=== PATIENT | female | born 1990 | race Caucasian/White ===

== ENCOUNTER 2019-03-12 14:54 | Outpatient (CLI) | payer BC | END 2019-03-12 14:55 | disposition home or self-care (01) | LOC: DTY/OP 14:54 | PROVIDERS: ATTEND Specialist | DX: Z01.818 Encounter for other preprocedural examination (principal); E66.01 Morbid (severe) obesity due to excess calories | CPT/HCPCS: 97802 ==

== ENCOUNTER 2019-04-16 09:38 | Outpatient (CLI) | payer BC ==
[2019-04-16 14:29] LABS: BHCG - Serum Negative (NEGATIVE); Pregs Control Background? CLEAR/WHITE (CLR/WHITE); Pregs Control Bar Appear? YES (CONTROL BAR)
== END 2019-04-16 09:39 | disposition home or self-care (01) ==
LOC: LABBT 09:38
PROVIDERS: ATTEND Specialist
DX: Z01.812 Encounter for preprocedural laboratory examination (principal); E66.01 Morbid (severe) obesity due to excess calories; Z68.38 Body mass index [BMI] 38.0-38.9, adult
CPT/HCPCS: 84703

== ENCOUNTER 2019-04-24 06:07 | Inpatient (IN) | payer OTHER ==
[2019-04-16 13:16] VITALS: BMI 38.2
--- NOTE | 2019-04-17 08:34 | HP ---
ADDENDUM: Addendum to history and physical dictated on 02/25/2019, #[id number]. HISTORY OF PRESENT ILLNESS: Del Rea returns for preoperative visit for laparoscopic sleeve gastrectomy. She has a long history of obesity and has tried numerous diets. None of these has had durable success. I initially saw her on 02/25/2019, after she attended our seminar. Since that day, she has visited our dietitian, seen the psychologist and she is a good candidate for laparoscopic sleeve gastrectomy. 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 She is single. Her preoperative weight of 255 pounds, 38 BMI on initial presentation and today 252 pounds, 38 BMI. [place] body weight 143 pounds. She did online seminar. She has associated low back pain. Reports emotional eating and initially evaluated with her mother accompanied her today, she is alone. PAST MEDICAL HISTORY: Depression, anemia, anxiety. PAST SURGICAL HISTORY: Noncontributory. TOBACCO: None. ALCOHOL: None. ALLERGIES: NONE. MEDICATIONS: Duloxetine 20 mg twice a day, alprazolam 0.5 mg twice a day, quetiapine fumarate 25 mg once a day. REVIEW OF SYSTEMS: Ten-point noncontributory. PHYSICAL EXAMINATION: VITAL SIGNS: Weight 252 pounds, 38 BMI, blood pressure 136/79, pulse 67, temp 97 degrees, height 5 foot 8 inches. HEAD, EARS, EYES, NOSE AND THROAT: Unremarkable. LUNGS: Clear to auscultation. CARDIAC: Regular rate and rhythm without murmur or gallop. ABDOMEN: Soft and nontender. No mass. EXTREMITIES: Unremarkable. ASSESSMENT: Morbid obesity. PLAN: Laparoscopic sleeve gastrectomy. She understands risks of infection, bleeding, reoperation, open procedure, leaks, etc. and consents. Questions answered. She plans to take two weeks off work, 04/24 to 05/06. Job ID: [id number]
--- NOTE | 2019-04-17 08:36 | HP ---
HISTORY OF PRESENT ILLNESS: Del Rea is a 28-year-old female, single, works for [employer]. She is from [place], [place], just outside of [place]. She has lived here for several years. Her mother has driven in from [place] to be with her during this visit. The patient is online bariatric seminar. The patient reports being 150 pounds in high school, active, running and highly active, but has gained weight over the years to her current weight of 255 pounds, 38 BMI, 5 feet 8 inches. [place] body weight is calculated at 143 pounds. The patient has tried numerous weight loss efforts without durable results. She does not smoke tobacco. She does not drink alcohol. She does not do drugs. She reports low back pain but otherwise no associated comorbidities. She does deal with depression, anxiety, and sees a psychologist every 2-3 months. She has viewed our online seminar and interested in laparoscopic sleeve gastrectomy. She understands risks and benefits and questions have been answered and she has discussed these issues at hand and she wishes to proceed with laparoscopic sleeve gastrectomy baseline labs, psychology visit, and dietary consult. She understands risks of infection, bleeding, reoperation, leakage, bleeding, postoperative reoperation, etc. She understands she will have to make good choices for food selections, activity will enhance her success. She is well motivated and a good candidate. ALLERGIES: NONE. SOCIAL HISTORY: Tobacco none. The patient is single. The patient has tried numerous weight loss efforts on her own losing 25 pounds in 2017, regained it, [employer] fall of 2018 losing 20 pounds, regained it more recently, diet low-fat, low-calorie, 30 pounds weight loss, regained. MEDICATIONS: 1. Duloxetine 60 mg twice a day. 2. Alprazolam 0.5 mg twice a day. 3. Quetiapine 400 mg once a day. 4. Drospirenone 0.02 mg a day. 5. . PAST MEDICAL HISTORY: Noncontributory. PAST SURGICAL HISTORY: Noncontributory. REVIEW OF SYSTEMS: Ten-point noncontributory. FAMILY HISTORY: Noncontributory. PHYSICAL EXAMINATION: VITAL SIGNS: 5 foot 8 inches, 255 pounds, 38 BMI, 142/83, 89, 97.6 degrees. HEAD, EARS, EYES, NOSE, AND THROAT: Unremarkable. LUNGS: Clear to auscultation. CARDIAC: ABDOMEN: Soft, obese, nontender. No masses. EXTREMITIES: Unremarkable. No ankle edema. ASSESSMENT AND PLAN: Morbid obesity, 5 foot 8 inches, 38 BMI, 255 pounds. I agree with her laparoscopic sleeve gastrectomy she does not have any associated problems such as reflux or retention. She understands risks and benefits, consents, has reasonable goals and is well motivated to be compliant to have good success. We will have her see our trimming department blocker, obtain baseline labs and psychologist. Job ID: [id number]
[2019-04-24] MEDS ORDERED: EPINEPHrine 1 MG/ML AMP ONE (06:36)
[2019-04-24] MEDS ORDERED: Bupivacaine 0.25% HCL 30 ML VIAL ONE (06:36)
[2019-04-24] MEDS ORDERED: Acetaminophen 500 MG TAB ONE (06:37)
[2019-04-24] MEDS ORDERED: Gabapentin 300 MG CAP ONE (06:37)
[2019-04-24] MEDS ORDERED: Heparin 5,000 UNITS/ML VIAL ONE (06:43)
[2019-04-24] MEDS ORDERED: Scopolamine 1.5 mg/72 hour Patch ONE (06:43)
[2019-04-24] MEDS ORDERED: ceFOXitin 2 GM/50 ML Duplex BAG ONE (06:43)
[2019-04-24] MEDS ORDERED: Ketorolac Tromethamine 30 MG/ML VIAL ONE ×2 (06:43→09:15)
[2019-04-24] MEDS ORDERED: Midazolam HCl 2 mg/2 ml Vial ONE (06:44)
[2019-04-24] MEDS ORDERED: Fentanyl 100 MCG/2 ML VIAL ONE ×3 (06:51→09:56)
[2019-04-24] MEDS ORDERED: Promethazine HCl 25 MG/ML VIAL SLOW IVP PRN (09:08)
[2019-04-24] MEDS ORDERED: Promethazine HCl 25 MG/ML VIAL IM PRN (09:08)
[2019-04-24] MEDS ORDERED: Ondansetron HCl/PF 4 MG/2 ML Vial IVP PRN (09:08)
[2019-04-24] MEDS ORDERED: Lidocaine 1% PF 5 ML VIAL ONE (09:15)
[2019-04-24] MEDS ORDERED: Glycopyrrolate 0.2 MG/ML 5 ML SYRINGE ONE (09:15)
[2019-04-24] MEDS ORDERED: Ondansetron PF 4 MG/2 ML Vial ONE (09:15)
[2019-04-24] MEDS ORDERED: Dexamethasone 20 MG/5 ML VIAL ONE (09:15)
[2019-04-24] MEDS ORDERED: PROPOFOL 200 MG/20 ML VIAL ONE (09:15)
[2019-04-24] MEDS ORDERED: Rocuronium Bromide 10 MG/ML (10ML VIAL) ONE (09:15)
[2019-04-24] MEDS ORDERED: Morphine 4 MG/ML VIAL SLOW IVP PRN (09:38)
[2019-04-24] MEDS ORDERED: Ondansetron PF 4 MG/2 ML Vial IVP PRN (09:38)
[2019-04-24] MEDS ORDERED: Morphine 2 MG/ML SYRINGE SLOW IVP PRN (09:38)
[2019-04-24] MEDS ORDERED: diphenhydrAMINE 50 MG/ML VIAL IVP PRN (09:38)
[2019-04-24] MEDS ORDERED: hydrALAZINE 20 MG/ML VIAL SLOW IVP PRN (09:38)
[2019-04-24] MEDS ORDERED: Hydrocodone-Acetamin 15 ML UDCUP PO PRN (09:38)
[2019-04-24] MEDS ORDERED: Acetaminophen 500 MG TAB PO PRN (09:41)
--- NOTE | 2019-04-24 11:14 | OP ---
DATE OF PROCEDURE: 04/24/2019 PREOPERATIVE DIAGNOSES: 1. Morbid obesity, 38 BMI and 252 pounds. 2. Comorbidities. 3. Depression. PROCEDURES PERFORMED: 1. Laparoscopic sleeve gastrectomy over 36-Yakut bougie, staple line within 4 cm of pylorus. 2. Completion endoscopy to visualize the duodenum postpyloric. ANESTHESIA: General. ESTIMATED BLOOD LOSS: 20 mL. DESCRIPTION OF PROCEDURE: The patient was taken to the operating room, where under general anesthesia, abdomen was prepared with ChloraPrep and draped in routine fashion. Local anesthetic with 0.25% Marcaine 60 mL mixed with 1% Xylocaine 20 mL with epinephrine infiltrated in the skin and subcutaneous tissue about all port sites. Supraumbilical incision was made in the midline and pneumoperitoneum to 15 mmHg was obtained with a Veress needle, replaced with a 5 port. Bilateral far lateral subcostal incision was made and a 5 port was placed. Bilateral midclavicular upper abdominal incision was made and a 15 port placed on the patient's left and 12 port on the patient's right. Stab incision was made in the left subxiphoid, trocar of 5 mm placed and then Juan retractor placed and held in place with Darryl's Arm, reflecting the left lobe of liver anterior and cephalad. Hiatal hernia was not present. The gastrocolic ligament taken down along the greater curvature of the stomach using the LigaSure, double burning and dividing the gastrocolic ligament up to the angle of His, which had been dissected free and the posterior stomach dissected free. A 36-Yakut bougie placed under laparoscopic visualization into the distal antrum, positioned properly and initial fire green load stapler made, preserving adequate antrum to prevent it to be in too tight. Second fire gold of the stomach, avoided narrowing the incisura. Serial fires of the blue load stapler performed, completing the sleeve gastrectomy up towards the angle of His. Adequate fundus allowed the angle of His to prevent encroachment on the esophagus. Good hemostasis noted and obtained with hemoclips. The gastrocolic ligament was very close to the apex of the spleen and careful dissection had been carried out here and there was some slight oozing and Floseal applied and good hemostasis noted. Darin also placed along the staple line and the apex of the spleen. Good hemostasis noted. Completion endoscopy was performed, placing the scope first, also under direct visualization and using air insufflation passed through the esophagus, through the stomach, visualizing the pylorus and duodenum, removing the scope, noting good hemostasis, noting absence of any narrowing. Esophagus was normal. Irrigant and pneumoperitoneum evacuated after sleeve gastrectomy specimen removed from the 15 mm of left upper quadrant port site and GraNee needle used, 0 Vicryl [id number] to close this defect. The area irrigated. Good hemostasis noted. Skin incisions were approximated with subdermal 4-0 Monocryl and [place] glue applied. The patient tolerated the procedure well. Job ID: [id number]
[2019-04-24] MEDS ORDERED: Ketorolac Tromethamine 30 MG/ML VIAL IVP SCH (12:00)
[2019-04-24] MEDS: Ketorolac Tromethamine 30 MG/ML VIAL IVP SCH ×2 (14:26→20:06)
[2019-04-24] MEDS: D5 1/2 NS w/20 mEq KCL 1,000 ML IV SCH ×3 (14:27→22:21)
[2019-04-24] MEDS ORDERED: Enoxaparin Sodium 40 MG/0.4 ML SYRINGE SC SCH (21:00)
[2019-04-24] MEDS ORDERED: QUEtiapine Fumarate ER 50 MG TAB PO SCH (21:00)
[2019-04-24] MEDS: DULoxetine 60 MG CAP PO SCH (21:09)
[2019-04-24] MEDS: ALPRAZolam 0.5 MG TAB PO SCH (21:09)
[2019-04-25] MEDS: Ketorolac Tromethamine 30 MG/ML VIAL IVP SCH ×2 (02:05→09:21)
[2019-04-25 05:31] LABS: #Lymphocytes 2.2 thou/uL (1.20-3.40); #Monocytes 0.9 thou/uL (0.11-0.59); #Neutrophils 5.6 thou/uL (1.40-6.50); %Basophils 0.2 % (0.0-1.0); %Eosinophils 0.3 % (0.0-10.0); %Lymphocytes 25.1 % (21.0-51.0); %Monocytes 10.1 % (0.0-10.0); %Neutrophils 64.3 % (42.0-75.0); Hemoglobin 13.4 g/dL (12.0-16.0); Mean Corpuscular HGB CONC 34.3 g/dL (32.0-36.0); Mean Corpuscular Hemoglobin 31.3 pg (27.0-31.0); Mean Corpuscular Volume 91.3 fL (78.0-98.0); Mean Platelet Volume 9.4 fL (7.4-10.4); Platelet Count 199 thou/uL (130-400); RBC Distribution Width 11.8 % (11.5-14.5); White Blood Cell (WBC) Count 8.6 thou/uL (4.8-10.8)
[2019-04-25 05:56] LABS: Anion Gap 12 mmol/L (10-20); BUN (Urea Nitrogen) 5 mg/dL (7.0-18.7); Calc. Creatinine Clearance 201 mL/min (70-130); Calcium 8.6 mg/dL (7.8-10.44); Carbon Dioxide 25 mmol/L (22-29); Chloride 105 mmol/L (98-107); Estimated GFR-MDRD Greater than 90; Glucose 105 mg/dL (70-105); Potassium 4.2 mmol/L (3.5-5.1); Sodium 138 mmol/L (136-145)
[2019-04-25] MEDS: D5 1/2 NS w/20 mEq KCL 1,000 ML IV SCH (06:13)
[2019-04-25 07:46] VITALS: BP 121/78; TEMP 97.5
[2019-04-25] MEDS ORDERED: Pantoprazole 40 MG VIAL IVP SCH (09:00)
[2019-04-25] MEDS: ALPRAZolam 0.5 MG TAB PO SCH (09:21)
[2019-04-25] MEDS: DULoxetine 60 MG CAP PO SCH (09:21)
[2019-04-25] MEDS ORDERED: Ibuprofen 600 MG TAB PO PRN (13:41)
--- NOTE | 2019-04-25 17:05 | DIS ---
DATE OF ADMISSION: 04/24/2019 DATE OF DISCHARGE: 04/25/2019 DISCHARGE DIAGNOSIS: Morbid obesity. PROCEDURES PERFORMED: Laparoscopic sleeve gastrectomy, 36-Kyrgyz bougie, staple line within 4 cm of the pylorus, completion upper endoscopy, scope passed easily into the duodenum. DISCHARGE MEDICATIONS: 1. [id number]-[id number]-ywomshm Tylenol, ibuprofen p.r.n. pain. 2. Lortab Elixir 200 mL as needed, 15 mL q.i.d. p.r.n. 3. Resume home medications, see list. HISTORY: This is a 28-year-old female, who viewed our bariatric seminar, went through the bariatric program, now presents for sleeve gastrectomy, laparoscopic for refractory obesity. Postop, she did well, tolerated her bariatric clears, which she will advance per protocol over the next 6 weeks. Medications as noted. She can shower and bathe. Avoid lifting over 25 pounds for 4 weeks postoperatively. Follow up in my office in 1 to 2 weeks. Job ID: [id number]
--- NOTE | 2019-04-26 04:21 | PQF ---
Del Rea RICHARD D MD [id number] CLINICAL DOCUMENTATION CLARIFICATION FORM: POST DISCHARGE Addendum to original discharge summary date: ____ Late entry note date: __ DATE: 04/26/2019 ATTN: Saad Burt Please exercise your independent, professional judgment in responding to the clarification form. Clinical indicators are provided on the bottom of this form for your review Please check appropriate box(s): Mood Disorder Type (check appropriate): Status: Severity: [ ] Manic [ ] Single past episode [ ] Mild [ ] Bipolar [ ] Current episode [ ] Moderate [ ] Manic [ ] In remission [ ] Severe [ ] Depressive [ ] Partial [ ] Mixed [ ] Full [ ] Major Depressive Disorder [ ] With Psychosis [ ] Persistent Mood Disorder [ ] Without Psychosis [ ] Other diagnosis [ ] Unable to determine In addition, please specify: Present on Admission (POA): [ ] Yes [ ] No [ ] Unable to determine For continuity of documentation, please document condition throughout progress notes and discharge summary. Thank You. CLINICAL INDICATORS - SIGNS / SYMPTOMS / LABS H&P p1 04/24 Dr Cornejo She does deal with depression, anxiety and sees a psychologist every 2-3 months' H&P p1 04/24 Dr Cornejo She understands risks and benefits and question have been answered and she has discussed these issues at hand and she wishes to proceed with laparoscopic sleeve gastrectomy baseline labs, psychology visit and dietary consult RISK FACTORS H&P p1 04/24 28 year-old Female H&P p1 04/24 Depression H&P p1 04/24 Morbid Obesity TREATMENT: MAY 25 Xanax MAY 25 Cymbalta H&P p2 04/24 Will have her see our fretted string instrument repairer, obtain labs and psychologist (This form is maintained as a part of the permanent medical record) 2014 [employer]. All Rights Reserved [email or web address] [not provided] [email or web address]
== END 2019-04-25 14:30 | disposition home or self-care (01) | DRG 621 ==
LOC: SDC 06:07 → SURG A 10:15
PROVIDERS: ADMIT Specialist; ATTEND Specialist
PROC: 0DB64Z3 Excision of Stomach, Percutaneous Endoscopic Approach, Vertical (ICD-10-PCS; principal; 2019-04-24)
PROC: 0DJ08ZZ Inspection of Upper Intestinal Tract, Via Natural or Artificial Opening Endoscopic (ICD-10-PCS; 2019-04-24)
DX: E66.01 Morbid (severe) obesity due to excess calories (principal); Z68.38 Body mass index [BMI] 38.0-38.9, adult; F32.9 Major depressive disorder, single episode, unspecified; F41.9 Anxiety disorder, unspecified; Z79.899 Other long term (current) drug therapy
CPT/HCPCS: 36415; 80048; 85025; 88307; 88312; C9113; J0171; J0694; J1100; J1644; J1650; J1885; J2001; J2250; J2270; J2405; J2704; J3010; S0020